=== PATIENT | female | born 2000 | race Caucasian/White ===

== ENCOUNTER → 2021-03-13 | Outpatient (CLI) | payer BC ==
[~2021-03-13] MED LIST: [UNRECOGNIZED DRUG - REMARK]
[2021-03-13 16:22] LABS: BASOPHIL % 0.1 % (0.0-0.2); EOSINOPHIL # 0.1 10^3/uL (0.0-0.2); EOSINOPHIL % 1.3 % (0.0-5.0); LYMPHOCYTES # 1.85 10^3/uL1 (1.0-4.8); LYMPHOCYTES % 27.4 % (24.0-44.0); MEAN CORP HGB 29.6 pg (26-34); MONOCYTES # 0.6 10^3/uL (0.3-0.8); MONOCYTES % 8.6 % (5.0-12.0); NEUTROPHIL # 4.2 10^3/uL (1.8-7.7); NEUTROPHILS % 62.5 % (41.0-85.0); PLATELET COUNT 200 10^3/uL (150-400); RED CELL DISTRIBUTION WIDTH 11.8 % (11.5-14.5)
[2021-03-13 16:50] LABS: CARBON DIOXIDE 25.4 mmol/L (20.0-32)
[2021-03-16 10:15] LABS: HEP A AB, IgM Negative (Negative)
== END | disposition home or self-care (01) ==
LOC: LAB 15:54
PROVIDERS: ATTEND Physician Assistant
DX: Z11.3 Encounter for screening for infections with a predominantly sexual mode of transmission (principal); I10 Essential (primary) hypertension; N76.5 Ulceration of vagina
CPT/HCPCS: 80053; 80074; 81025; 85025; 86592; 86703; 87491; 87529

== ENCOUNTER 2021-09-25 12:04 | Emergency (ER) | payer BC ==
[~2021-09-25] VITALS: Ht 162.6 cm; Wt 68.0 kg
[2021-09-25 13:02] VITALS: BP 130/82
[2021-09-25 13:10] VITALS: BP 130/82
--- NOTE | 2021-09-25 14:06 | ER.PDOC ---
General Chief Complaint: Sore Throat Stated Complaint: SORE THROAT Time seen by MD: 14:04 Source: patient Exam Limitations: no limitations History of Present Illness Initial Comments Sore throat, cough and congestion since yesterday. No fever or chills. Timing/Duration: gradual Associated Symptoms: mild sore throat, cough Severity: mild Allergies: Coded Allergies: No Known Allergies (Unverified , 08/20/15) Home Meds Reported Medications [. Control Pills] No Conflict Check, DAILY 08/20/15 Past Medical History Medical History: no pertinent history Surgical History: no surgical history Family History Significant Family History: no pertinent family hx Social History Smoking: non-smoker Alcohol Use: occassionally Drug Use: none Constitutional: no symptoms reported Throat: see HPI Respiratory: see HPI Cardiovascular: no symptoms reported Gastrointestinal: no symptoms reported Musculoskeletal: no symptoms reported All Other Systems: Reviewed and Negative Physical Exam General Appearance: alert, no distress Head/Neck: head nml inspection, neck nml inspection, trachea midline, no lymphadenopathy, thyroid nml Eyes: eyes nml inspection, PERRL, no nystagmus Mouth: lips, gums nml, no drooling, no thrush, membranes nml Throat: pharynx nml, voice nml, no airway problems Ears/Nose: nml inspection Respiratory: no resp. distress, lungs clear CVS: reg. rate & rhythm, heart sounds nml Abdomen: non-tender, no organomegaly Extremities: non-tender, ROM nml Skin Exam: Normal Color, Warm/Dry NEURO/PSYCH: oriented X3, mood/effect nml Results/Orders Results/Orders Orders - LICHA BATISTA MD Strep Screen (09/25/21 12:36) Covid19 Antigen Cristina Zully (09/25/21 12:36) Influenza A&B (09/25/21 12:36) Vital Signs Date Time Temp Pulse Resp B/P (MAP) Pulse Ox O2 Delivery O2 Flow Rate FiO2 09/25/21 13:10 98.4 108 16 130/82 (98) 98 Room Air* 0 21 09/25/21 13:02 98.4 108 16 98 09/25/21 13:02 98.4 108 16 130/82 (98) 98 Room Air* 0 21 09/25/21 13:02 98.4 108 16 Laboratory Tests Test 09/25/21 12:58 Influenza Type A Antigen NEGATIVE (NEG) Influenza Type B Antigen NEGATIVE (NEG) SARS-CoV-2 Antigen (Rapid) NEGATIVE (NEGATIVE) Group A Streptococcus Screen NEGATIVE (NEGATIVE) Progress Progress Patient is negative for strep and COVID. ER DEPART Departure Time of Disposition: 14:05 Disposition: 01 HOME / SELF CARE / HOMELESS Impression: Primary Impression: Acute viral pharyngitis Additional Impression: Viral URI Condition: Stable Referrals: [facility] (PCP) PRIMARY CARE PROVIDER Additional Instructions: Chloraseptic spray [id number] as needed for throat pain Mucinex DM [id number] as tolerated Follow-up with your PCP in 1 week Return to ED if worsening symptoms or concerns Duration or Time Spent with Pa: 10 min LICHA BATISTA MD Sep 25, 2021 14:06
== END 2021-09-25 14:13 | disposition home or self-care (01) ==
LOC: ER 12:04
DX: J02.8 Acute pharyngitis due to other specified organisms (principal); Z20.822 Contact with and (suspected) exposure to COVID-19; F10.20 Alcohol dependence, uncomplicated; B97.89 Other viral agents as the cause of diseases classified elsewhere; J06.9 Acute upper respiratory infection, unspecified; R09.81 Nasal congestion
CPT/HCPCS: 87070; 87426; 87804; 87880; 99283